=== PATIENT | female | born 1955 | race Caucasian/White ===

== ENCOUNTER 2017-07-11 07:06 | Day surgery (SDC) | payer BC ==
[2017-07-11] MEDS ORDERED: LIDOCAINE 1% W/EPI 1:200,000 MPF 30ML SQ ONE (07:07)
[2017-07-11] MEDS ORDERED: DEXAMETHASONE PRESERVATIVE FREE 10MG/ML VIAL IV ONE (07:07)
[2017-07-11] MEDS ORDERED: BUPIVACAINE 0.5% W/EPI MPF 30 ML VIAL IVP ONE (07:07)
--- NOTE | 2017-07-12 20:22 | Operative Note - [place] ---
DATE OF SURGERY: 07/11/17 PREOPERATIVE DIAGNOSIS: CERVICAL SPONDYLOSIS WITHOUT MYELOPATHY, ICD-10 CODE = M47.812. SURGERY: RADIOFREQUENCY RHIZOTOMY LEFT CERVICAL FACETS 4-5, 5-6, AND 6-7. SURGEON: EVERT AMARAL D.O. ANESTHESIA: LOCAL SEDATION. ANESTHESIA PROVIDER: HIEU SAENZ CRNA INDICATIONS: This patient presents with left-sided neck and shoulder pain. Diagnostics showed extensive spondylitic change. Previous facet and rhizotomy at the above levels with 75+% pain control for multiple years. Due to the failure of other therapies and the success of the facet and rhizotomies, she is here for repeat rhizotomy. SURGERY: Intravenous line, vital sign monitoring, IV sedation, prepped, draped , sterile technique. Under imaging, facets left 4-5, 5-6, and 6-7 marked, skin infiltrated. #20 gauge rhizotomy cannulae positioned, stimulator trials conducted. Rhizotomy burn performed. Local with anti-inflammatory into sites. Topical antibiotic and sterile dressing was applied. Will monitor and evaluate. cc: Dr. Pablo Georges JOB NUMBER: [id number] MTDD
== END 2017-07-11 09:08 | disposition home or self-care (01) ==
LOC: SUR 07:06
PROVIDERS: ATTEND Pain Medicine Interventional Pain Medicine
DX: M47.812 Spondylosis without myelopathy or radiculopathy, cervical region (principal); I10 Essential (primary) hypertension; G47.33 Obstructive sleep apnea (adult) (pediatric)
CPT/HCPCS: 64633; 64634 ×2; 01936; J1100